=== PATIENT | male | born 1950 | race Caucasian/White ===

== ENCOUNTER → 2016-04-28 | Outpatient (CLI) | payer OTHER ==
[~2016-04-28] MED LIST: IOPAMIDOL (ISOVUE-300) 100 ML BTL IV ONE
== END ==
LOC: FIMAGING 08:58
PROVIDERS: ATTEND Internal Medicine Cardiovascular Disease
DX: I48.2 Chronic atrial fibrillation (principal)
CPT/HCPCS: Q9967

== ENCOUNTER 2016-05-05 07:01 | Observation (INO) | payer OTHER ==
[2016-05-05] MEDS ORDERED: NS 1,000 ML IV ONE (07:06)
[2016-05-05] MEDS ORDERED: MIDAZOLAM 2 MG/2 ML VIAL IVP ONE (07:06)
--- NOTE | 2016-05-05 07:28 | CPEKG ---
Heart Rate: 59 RR Interval: 1017 P-R Interval: 172 QRSD Interval: 98 QT Interval: 396 QTC Interval: 393 P [place]: 62 QRS [place]: -58 T Wave [place]: 17 EKG Severity - ABNORMAL ECG - EKG Impression: SINUS RHYTHM EKG Impression: INFERIOR INFARCT, AGE INDETERMINATE Electronically Signed By: Alvino Carrillo 06-May-2016 18:21:58
[2016-05-05 07:39] LABS: % IMMATURE GRANULYOCYTES 0.4 % (0.0-1.1); ABSOLUTE IMMATURE GRANULOCYTES 0.02 10^3/uL (0.00-0.10); ADD DIFF? NO; ADD MORPH? NO; ADD SCAN? NO; ATYPICAL LYMPHOCYTE FLAG 0 (0-99); FRAGMENT RBC FLAG 0 (0-99); HEMATOCRIT 47.3 % (40.0-51.0); HEMOGLOBIN 16.3 g/dL (13.7-17.5); LEFT SHIFT FLG 0 (0-99); LIPEMIA HEMOLYSIS FLAG 90 (0-99); MEAN CELL HEMOGLOBIN 31.8 pg (27.9-34.1); MEAN CELL HEMOGLOBIN CONCENTR. 34.5 g/dL (32.4-36.7); MEAN CELL VOLUME 92.4 fL (81.5-99.8); PLATELET CLUMPS FLAG 0 (0-99); PLATELET COUNT 185 10^3/uL (150-400); RED BLOOD CELL COUNT 5.12 10^6/uL (4.40-6.38)
[2016-05-05 07:47] LABS: INR 1.08 (0.83-1.16); PROTIME(PATIENT) 13.9 SEC (12.0-15.0)
[2016-05-05 07:52] LABS: ANION GAP 9 mEq/L (8-16); CALCIUM 9.3 mg/dL (8.5-10.4); CARBON DIOXIDE 26 mEq/l (22-31); CHLORIDE 105 mEq/L (97-110); GLOMERULAR FILTRATION RATE > 60; GLUCOSE 108 mg/dL (70-100); MAGNESIUM 2.2 mg/dL (1.6-2.3); POTASSIUM 4.5 mEq/L (3.5-5.2); SODIUM 140 mEq/L (134-144)
[2016-05-05] MEDS ORDERED: HEPARIN/DEXTROSE 25,000 UNIT/500 ML BAG IV ONE (08:03)
[2016-05-05] MEDS ORDERED: LIDOCAINE 1% 30 ML SDV ONE (08:03)
[2016-05-05] MEDS ORDERED: HEPARIN 10,000 UNIT/10 ML MDV ONE (08:04)
[2016-05-05] MEDS ORDERED: BUPIVACAINE 0.5% 30 ML SDV ONE (08:04)
[2016-05-05] MEDS ORDERED: IOPAMIDOL (ISOVUE-300) 100 ML BTL IV ONE (08:05)
[2016-05-05] MEDS ORDERED: fentaNYL 100 MCG/2 ML INJ ONE (08:42)
[2016-05-05] MEDS ORDERED: ROCURONIUM 50 MG/5 ML VIAL ONE (08:42)
[2016-05-05] MEDS ORDERED: PROPOFOL/EMULSION 500 MG/50 ML BOTTLE IV ONE (08:42)
[2016-05-05] MEDS ORDERED: DEXAMETHASONE 4 MG/ML VIAL ONE (08:42)
[2016-05-05] MEDS ORDERED: epHEDrine SULFATE 10 MG/ML SYR ONE (10:05)
[2016-05-05] MEDS ORDERED: SUGAMMADEX SODIUM 200 MG/2 ML VIAL IVP ONE (10:53)
[2016-05-05] MEDS ORDERED: PROTAMINE SULFATE 50 MG/5 ML VIAL IVP ONE (11:11)
[2016-05-05] MEDS ORDERED: ONDANSETRON 4 MG/2 ML VIAL ONE (11:12)
[2016-05-05] MEDS ORDERED: ZOLPIDEM TARTRATE 5 MG TAB PO PRN (11:32)
[2016-05-05] MEDS ORDERED: ACETAMINOPHEN 325 MG TAB PO PRN (11:39)
[2016-05-05] MEDS ORDERED: ONDANSETRON 4 MG/2 ML VIAL IVP PRN (11:39)
[2016-05-05] MEDS ORDERED: OXYCODONE/APAP 5/325 TAB PO PRN (11:39)
--- NOTE | 2016-05-05 11:39 | EPPROC ---
Electrophysiology Procedure Note: ELECTROPHYSIOLOGIC STUDY AND BALLOON-CATHETER MEDIATED CRYOABLATION FOR PAROXYSMAL ATRIAL FIBRILLATION Procedures performed: 47265-45 EP evaluation with RA/RV/LA pace/record, with arrhythmia induction 21256-99 EP evaluation with RA/RV pace record, insert/reposition catheter, with arrhythmia induction 11021 Atrial fibrillation ablation Intracardiac echocardiogram Transseptal puncture Fluoroscopy INDICATION: Paroxysmal atrial fibrillation PROCEDURE: The patient arrived in the Electrophysiology Laboratory in the fasting state. The right groin, left groin and right infraclavicular area were prepped and draped in the usual sterile fashion. Anesthesiologist administered general anesthesia Dr. Allison Herr . All catheters were placed percutaneously using the Seldinger technique and advanced into position under fluoroscopic guidance. One #7 Maltese deflectable octapolar electrode catheter was placed in the His-bundle position via the left femoral vein (2mm spacing, IVC electrode for unipolar recordings). This catheter was placed in the coronary sinus after transseptal puncture and later placed in the SVC-R subclavian vein junction to pace the right phrenic nerve during right pulmonary vein ablation. One #8 Maltese AcuNaV ultrasound catheter was placed in the left femoral vein and advanced into the right atrium. One #4 Maltese sheath was inserted into the left femoral artery via percutaneous technique and used for continuous arterial blood pressure monitoring and intermittent ACT determination. Programmed stimulation was performed from the right atrium, left atrium (CS) and right ventricle. There was no evidence of AV accessory pathway. Intracardiac echo evaluation of the left atrium and pulmonary veins was performed. Baseline ACT was drawn and heparin bolus was administered and heparin drip was started prior to transseptal puncture. ACT was checked every 15 minutes and maintained in the range of 350-400 seconds. One 14Fr short sheath was placed in the right femoral vein. One 8Fr SL1 sheath was advanced into the right atrium via the 14Fr short sheath. Transseptal puncture was performed under intracardiac ultrasound, fluoroscopic and hemodynamic guidance placing the sheath into the left atrium. [place] RF needle ( C0 curve) was used. The mean left atrial pressure was 12 mmHg. Pulmonary vein angiogram was done using SL1 sheath. CT angiography of pulmonary veins was done previously. There were left common vein, RSPV and RIPV. The SL1 sheath was exchanged for a Sonitus [employer] Flexcath sheath using an Amplatz stiff guide wire. A 28 mm Cryoballoon catheter with a 20 mm Achieve catheter was placed via the sheath into the left atrium. Intracardiac ultrasound and PV angiograms were used to assist in placing the mapping catheter at the antrum of the pulmonary veins. All pulmonary veins were isolated successfully using cryoballoon ablation using freeze/thaw/freeze cycles at 2-3-minute intervals, with good [id number] of isolation. Coumadin ridge/Ligament of Indra region was ablated. Pre and post pulmonary vein recordings were measured on the spiral Achieve catheter to ensure complete pulmonary vein isolation. Left common vein was ablated segmentally and then raj ablation was done following. During the right-sided ablation, phrenic nerve pacing was performed to assess the phrenic nerve strength (manually and with ICE visualization of liver movement during phrenic capture) and the phrenic nerve was intact throughout the right-sided ablation and at the end of the procedure. An esophageal temperature probe (12 electrode, Circa) was placed by the anesthesiologist at the beginning of the procedure. Esophageal temperature was monitored continuously and cryoablation was interrupted if esophageal temperature was <15 C. Cryoapplications 9 total cryoablation time 1534 s. ICE imaging post ablation was consistent with pre ablation imaging with no changes noted, moreover there was no left atrial/left ventricular thrombus and no pericardial effusion. The catheters were withdrawn. Protamine was given. The sheaths were removed and manual pressure was used for hemostasis. The patient was recovered from anesthesia. There were no complications. The patient was arousable and moving all four extremities at the end of the procedure. CONCLUSIONS: 1. Paroxysmal atrial fibrillation. 2. Successful pulmonary vein isolation procedure (left and right pulmonary vein antrum) using cryoballoon ablation. 3. No apparent complications. Patient Problems: Problems Problem Status Onset Atrial fibrillation Acute
--- NOTE | 2016-05-05 11:40 | POSTANESTH ---
Post Anesthetic Evaluation Cardiovascular Status: Normal, Stable Respiratory Status: Normal, Stable Level of Consciousness/Mental Status: Can Participate in Eval, Moderately Sleepy Pain Control: Adequate, Prn Tx Ordered Nausea/Vomiting Control: Adequate, Prn Tx Ordered Complications Possibly Related to Anesthesia: None Noted
[2016-05-05] MEDS ORDERED: NALOXONE HCL 0.4 MG/ML INJ IVP PRN (11:41)
[2016-05-05] MEDS ORDERED: LR 500 ML IV PRN (11:41)
[2016-05-05] MEDS ORDERED: ALBUTEROL 3 ML DEYVIAL IH PRN (11:41)
[2016-05-05] MEDS ORDERED: fentaNYL 100 MCG/2 ML INJ IVP PRN (11:41)
[2016-05-05] MEDS ORDERED: TAMSULOSIN HCL 0.4 MG CAP PO SCH (12:00)
[2016-05-05 12:31] LABS: ANION GAP 8 mEq/L (8-16); CALCIUM 8.4 mg/dL (8.5-10.4); CARBON DIOXIDE 24 mEq/l (22-31); CHLORIDE 109 mEq/L (97-110); GLOMERULAR FILTRATION RATE > 60; GLUCOSE 131 mg/dL (70-100); POTASSIUM 4.8 mEq/L (3.5-5.2); SODIUM 141 mEq/L (134-144)
[2016-05-05] MEDS ORDERED: KETOROLAC 15 MG/1 ML SDV IVP PRN ×3 (12:35→14:42)
--- NOTE | 2016-05-05 13:18 | CPEKG ---
Heart Rate: 75 RR Interval: 800 P-R Interval: 140 QRSD Interval: 98 QT Interval: 388 QTC Interval: 434 P [place]: -40 QRS [place]: -63 T Wave [place]: 15 EKG Severity - ABNORMAL ECG - EKG Impression: SINUS RHYTHM EKG Impression: INFERIOR INFARCT, AGE INDETERMINATE Electronically Signed By: Alvino Carrillo 06-May-2016 18:21:46
[2016-05-05] MEDS: DABIGATRAN ETEXILATE MESYL 150 MG CAP PO SCH ×2 (18:09→21:54)
[2016-05-06 04:11] VITALS: TEMP 97.8
[2016-05-06 04:15] LABS: % IMMATURE GRANULYOCYTES 0.2 % (0.0-1.1); ABSOLUTE IMMATURE GRANULOCYTES 0.02 10^3/uL (0.00-0.10); ADD DIFF? NO; ADD MORPH? NO; ADD SCAN? NO; ATYPICAL LYMPHOCYTE FLAG 0 (0-99); FRAGMENT RBC FLAG 0 (0-99); HEMATOCRIT 41.7 % (40.0-51.0); HEMOGLOBIN 14.3 g/dL (13.7-17.5); LEFT SHIFT FLG 0 (0-99); LIPEMIA HEMOLYSIS FLAG 90 (0-99); MEAN CELL HEMOGLOBIN 32.4 pg (27.9-34.1); MEAN CELL HEMOGLOBIN CONCENTR. 34.3 g/dL (32.4-36.7); MEAN CELL VOLUME 94.6 fL (81.5-99.8); MEAN PLATELET VOLUME 9.3 fL (8.7-11.7); PLATELET CLUMPS FLAG 0 (0-99); PLATELET COUNT 178 10^3/uL (150-400); RED BLOOD CELL COUNT 4.41 10^6/uL (4.40-6.38)
[2016-05-06 04:29] LABS: INR 1.15 (0.83-1.16); PROTIME(PATIENT) 14.6 SEC (12.0-15.0)
[2016-05-06 04:37] LABS: ANION GAP 7 mEq/L (8-16); CALCIUM 8.8 mg/dL (8.5-10.4); CARBON DIOXIDE 24 mEq/l (22-31); CHLORIDE 108 mEq/L (97-110); CREATININE 0.9 mg/dL (0.7-1.3); GLOMERULAR FILTRATION RATE > 60; GLUCOSE 104 mg/dL (70-100); POTASSIUM 4.1 mEq/L (3.5-5.2); SODIUM 139 mEq/L (134-144)
[2016-05-06 04:52] LABS: CK-MB INTERPRETATION POSITIVE (NEGATIVE)
[2016-05-06] MEDS: DABIGATRAN ETEXILATE MESYL 150 MG CAP PO SCH (07:56)
[2016-05-06] MEDS ORDERED: lamoTRIgine 100 MG TAB PO SCH (09:00)
[2016-05-06] MEDS ORDERED: NON-FORMULARY NEW DRUG (Omeprazole [Prilosec 20 Mg] 20 MG) PO SCH (09:00)
[2016-05-06] MEDS ORDERED: PANTOPRAZOLE SODIUM 40 MG TAB PO SCH (09:00)
[2016-05-06] MEDS ORDERED: LAMOTRIGINE 300 MG PO SCH (09:00)
--- NOTE | 2016-05-06 09:02 | CPEKG ---
Heart Rate: 69 RR Interval: 870 P-R Interval: 168 QRSD Interval: 100 QT Interval: 376 QTC Interval: 403 P [place]: 64 QRS [place]: -65 T Wave [place]: 26 EKG Severity - ABNORMAL ECG - EKG Impression: SINUS RHYTHM EKG Impression: INFERIOR INFARCT, AGE INDETERMINATE Electronically Signed By: Alvino Carrillo 06-May-2016 18:20:48
--- NOTE | 2016-05-06 12:24 | ECHO ---
[id number] + + [address] : : [place] [address] : : [phone] + + Adult Echocardiographic Report + --------+ :Name: GEORGINA COOPER CStudy Date: 05/06/2016 07:23 AM BP: 114/57 mm Hg : : Hospital Admission Number: [id number] Locat ion: 248: :: 1950 Gender: Male Height: 72 in : :Age: 65 yrs Race: WH Weight: 179 l b : :Reason For Study: s/p ablation : : BSA: 2.0 mete rs2 : :History: s/p ablation : + --------+ MMode/2D Measurements \T\ Calculations IVSd: 1.2 cm RVDd: 3.9 cm FS: 42.9 % Ao root diam: LVPWd: 0.92 cm LVIDd: 4.7 cm EDV(Teich): 3.3 cm LVIDs: 2.7 cm 99.9 ml LA dimension: ESV(Teich): 4.1 cm 26.0 ml EF(Teich): 74.0 % LVLd ap4: 9.2 cm SV(MOD-sp4): EDV(MOD-sp4): 100.0 ml 134.0 ml LVLs ap4: 7.4 cm ESV(MOD-sp4): 34.0 ml EF(MOD-sp4): 74.6 % Normal Measurement Values: + + :LVIDd (3.5-5.7cm) IVSd (0.6-1.1cm) LVPWd (0.6-1.1cm) Aortic Root (2.0-3.7cm)Left Atrium (1.5-4.0cm): :LV Vol(d) (76-115ml) LV Vol(s) (29-48ml) Ejec Fraction (50-65%)PV Mendoza (0.6- 1.2m/s) TV Mendoza (0.4-1.0m/s) : :MV E Mendoza (0.8-1.0m/s)MV A Mendoza (0.3-1.0m/s)LVOT Mendoza (0.7-1.2m/s) Asc Ao Mendoza ( 0.9-1.8m/s) : + + Doppler Measurements \T\ Calculations MV E max mendoza: Ao V2 max: LV V1 max: PA V2 max: 78.0 cm/sec 130.3 cm/sec 113.5 cm/sec 78.5 cm/sec MV A max mendoza: Ao max PG: LV V1 max PG: PA max P.4 cm/sec 6.8 mmHg 5.2 mmHg 2.5 mmHg MV E/A: 1.7 MV dec time: 0.15 sec TR max mendoza: 228.0 cm/sec TR max P.8 mmHg RAP systole: 10.0 mmHg RVSP(TR): 30.8 mmHg Left Ventricle The left ventricle is normal in size and function. There is mild concentric left ventricular hypertrophy. Ejection Fraction = 70-75%. No regional wall motion abnormalities noted. Right Ventricle The right ventricle is normal in size and function. Atria The left atrium is mildly dilated. The Left Atrial Volume is 38 ml/m2. Right atrial size is normal. There was no clot seen in the IVC. A dilated inferior vena cava suggests increased right atrial pressure. Small PFO noted. Mitral Valve The mitral valve is normal in structure and function. There is no mitral valve stenosis. There is trace mitral regurgitation. Tricuspid Valve The tricuspid valve is normal in structure and function. There is no tricuspid stenosis. There is mild tricuspid regurgitation. Right ventricular systolic pressure is 31mmHg. There is Doppler evidence for mild pulmonary hypertension. Aortic Valve The aortic valve is trileaflet. There is no aortic stenosis. There is no aortic insufficiency. Pulmonic Valve The pulmonic valve is normal in structure and function. Mild pulmonic valvular regurgitation. Great Vessels The aortic root is normal size. Pericardium/Pleural Trivial pericardial effusion noted around the RV free wall; fat pad noted.. No tamponade physiology. There is no pleural effusion. Conclusion A two-dimensional transthoracic echocardiogram with M-mode and Doppler was performed. The left ventricle is normal in size and function. Ejection Fraction = 70-75%. The left atrium is mildly dilated. The Left Atrial Volume is 38 ml/m2. There was no clot seen in the IVC. A dilated inferior vena cava suggests increased right atrial pressure. There is mild tricuspid regurgitation. Right ventricular systolic pressure is 31mmHg. There is Doppler evidence for mild pulmonary hypertension. There is mild concentric left ventricular hypertrophy. Mild pulmonic valvular regurgitation. There is trace mitral regurgitation. There is no pleural effusion. Trivial pericardial effusion noted around the RV free wall; fat pad noted.. No tamponade physiology Final Reading Physician: Jg Gore electronically signed on 05/06/2016 12:22 PM Ordering Physician: Keyon Prado Performed By: Negrita Johnson
[2016-05-06 12:31] VITALS: BP 89/63; PULSE 78; RESP 20; O2SAT 95
--- NOTE | 2016-05-06 13:41 | GDS ---
[f rep st] DISCHARGE SUMMARY DISCHARGE DIAGNOSES: 1. Paroxysmal atrial fibrillation, status post successful atrial fibrillation ablation with cryobal loon on 05/05/2016. 2. Small cerebellar infarct in 2016. 3. Trivial pericardial effusion on echo on day of discharge. PROCEDURES: 1. 05/05/2016 echocardiogram, which showed EF of 70% to 75%, mildly dilated right atrium, dilated i nferior vena cava, RVSP of 31, mild concentric LVH, mild pulmonic valve regurgitation, trace TR. 2. 05/05/2016 EP study with successful pulmonary vein isolation procedure using cryoballoon ablatio n. BRIEF HISTORY: Please see dictated H and P from our office for complete details. In brief, the pat ient is a 65-year-old male, referred by Dr. Abdullahi Fang for evaluation of atrial fibrillation. He has also history of cerebellar infarction, thought related to his atrial fibrillation, for which he has been on Pradaxa therapy. He requested ablation procedure. This was done on 05/05/2016. Post p rocedurally, he had mild chest pain, treated with Toradol. He also had groin bleeding, which resolv ed with increased pressure. On day of discharge, patient reports no further chest pain. He denies any groin pain. PHYSICAL EXAM: VITAL SIGNS: On day of discharge, blood pressure 128/94, heart rate 76, respiration s 18, O2 saturation 94% on room air. GENERAL: He is a pleasant male, in no apparent distress. EYE S: PERRL. HEENT: Head is normocephalic, atraumatic. : Bilateral groin sites without bruit or ecchymosis noted. LABORATORY DATA: CBC was WBC 8.73, hemoglobin 14.3, hematocrit 41.7, platelet count of 178. BMP wit h sodium 139, potassium 4.1, chloride 108, CO2 24, BUN 13, creatinine 0.9, glucose 104. Troponin 9. 52, consistent with recent ablation procedure. RESULTS PENDING: None. DIET: Per previous. ACTIVITY: Groin precautions were reviewed. DISCHARGE MEDICATIONS: Please see med reconciliation. He will be discharged on all his home medica tions, which include Pradaxa, tamsulosin, omeprazole, Lamictal, fish oil, vitamin D3, and Ambien. FOLLOWUP: 1. Follow up as scheduled with Dr. Prado in 2 weeks' time. 2. Follow up on pericardial effusion, with limited echo in 1 week's time. /[id number]/MODL
== END 2016-05-06 13:44 | disposition home or self-care (01) ==
LOC: FCATH 07:01 → INTOOBSV 11:39 → F2N 11:39
PROVIDERS: ADMIT Internal Medicine Cardiovascular Disease; ATTEND Internal Medicine Cardiovascular Disease
PROC: 02K83ZZ Map Conduction Mechanism, Percutaneous Approach (ICD-10-PCS; principal; 2016-05-05)
PROC: 025S3ZZ Destruction of Right Pulmonary Vein, Percutaneous Approach (ICD-10-PCS; principal; 2016-05-05)
DX: I48.0 Paroxysmal atrial fibrillation (principal); G47.33 Obstructive sleep apnea (adult) (pediatric); F31.9 Bipolar disorder, unspecified
CPT/HCPCS: 93005; 93306; 93312; 93609; 93656; 93662; C1731; C1766; G0378; C1730; C1732; C1733; C1759; C1893; J1100; J1644; J1885; J2405; J2704; J2720; J3010; Q9967

== ENCOUNTER → 2016-07-22 | Outpatient (CLI) | payer OTHER | LOC: FIMAGING 14:29 | PROVIDERS: ATTEND Specialist | DX: Z87.442 Personal history of urinary calculi (principal) ==